=== PATIENT | male | born 1985 | race Caucasian/White ===

== ENCOUNTER 2018-06-19 18:25 | Emergency (ER) | payer BC ==
[2018-06-19] MEDS ORDERED: Metoclopramide 10 MG/2 ML SDV IVPUSH ONE (18:37)
[2018-06-19] MEDS ORDERED: Sodium Chloride 0.9% 2.5 ML Syringe FLUSH PRN (18:40)
[2018-06-19] MEDS ORDERED: Sodium Chloride 0.9% 10 ML Syringe FLUSH PRN (18:40)
[2018-06-19] MEDS ORDERED: Sodium Chloride 0.9% 1,000 ML IV ONE (18:40)
--- NOTE | 2018-06-19 18:40 | EDM.PDOC ---
<Mira Alcaraz - Last Filed: 06/19/18 21:29> ED HPI GENERAL MEDICAL PROBLEM - General Stated Complaint: DIARRHEA Time Seen by Provider: 06/19/18 18:27 - History of Present Illness INITIAL COMMENTS - FREE TEXT/NARRATIVE: This is Dr. Alcaraz dictating an addendum note as I have assumed care of this case at 7 PM. All labs have been reviewed and I have added a lactate level as well. CT scan has been reviewed as well. I discussed all testing results with the patient and he is aware that his spleen is mildly enlarged and he has some reactive lymph nodes as well as a small area in his liver that needs outpatient follow-up. He understands that the bulk of the issue today is more of a colitis picture and I will place him on antibiotics as well as give him Bentyl for home and recommend follow-up with one of our providers for resolution of the symptoms. I've also advised him to increase fiber in his diet push hydration and eat bland foods over the next couple of days. He states understanding. He has been stable here and afebrile and has only made a very small amount of stool which was sent to the lab. Patient is aware that the stool for Hemoccult is positive and that colitis can trigger bleeding in the stool. I have given him information to connect with our surgery clinic for colonoscopy after he is done with the therapy. At time of discharge the patient's stool culture for the quick look for Campylobacter is not back yet. We will contact him with those results and I will continue to follow those. He is aware that the remainder the culture is pending and he will be contacted with those results if there is a change in care plan. Please add to therapeutics above Flagyl and Precious Impression: Colitis with diarrhea - Related Data Allergies Allergy/AdvReac Type Severity Reaction Status Date / Time No Known Allergies Allergy Verified 06/19/18 18:39 Home Meds: Home Meds . [No Known Home Meds] 06/19/18 [History] ED ROS GENERAL - Review of Systems Review Of Systems: ROS reveals no pertinent complaints other than HPI. Course - Vital Signs Last Recorded V/S: Last Vital Signs Temp 98.0 F 06/19/18 20:44 Pulse 82 06/19/18 20:44 Resp 18 06/19/18 20:44 BP 122/68 06/19/18 20:44 Pulse Ox 95 03/13/19 20:44 - Orders/Labs/Meds Orders: Active Orders 24 hr Category Date Time Status CULTURE STOOL + CAMPY+SHIGATOX [RM] Stat Lab 06/19/18 20:38 Results Saline Lock Insert [OM.PC] Stat Oth 06/19/18 18:40 Ordered Labs: Laboratory Tests 06/19/18 06/19/18 06/19/18 Range/Units 18:42 19:01 19:01 WBC 7.18 (4.0-11.0) K/uL RBC 5.51 (4.50-5.90) M/uL Hgb 15.5 (13.0-17.0) g/dL Hct 45.6 (38.0-50.0) % MCV 82.8 (80.0-98.0) fL MCH 28.1 (27.0-32.0) pg MCHC 34.0 (31.0-37.0) g/dL RDW Std Deviation 40.1 (28.0-62.0) fl RDW Coeff of Bernardo 13 (11.0-15.0) % Plt Count 148 L (150-400) K/uL MPV 10.30 (7.40-12.00) fL Neut % (Auto) 69.9 (48.0-80.0) % Lymph % (Auto) 13.4 L (16.0-40.0) % Mora % (Auto) 14.2 (0.0-15.0) % Eos % (Auto) 2.4 (0.0-7.0) % Baso % (Auto) 0.1 (0.0-1.5) % Neut # (Auto) 5.0 (1.4-5.7) K/uL Lymph # (Auto) 1.0 (0.6-2.4) K/uL Mora # (Auto) 1.0 H (0.0-0.8) K/uL Eos # (Auto) 0.2 (0.0-0.7) K/uL Baso # (Auto) 0.0 (0.0-0.1) K/uL Nucleated RBC % 0.0 /100WBC Nucleated RBCs # 0 K/uL Lactate (0.20-2.00) mmol/L Sodium 138 (136-148) mmol/L Potassium 3.9 (3.5-5.1) mmol/L Chloride 100 (98-107) mmol/L Carbon Dioxide 29.8 (21.0-32.0) mmol/L BUN 9 (7.0-18.0) mg/dL Creatinine 0.9 (0.8-1.3) mg/dL Est Cr Clr Drug Dosing 123.92 mL/min Estimated GFR (MDRD) > 60.0 ml/min Glucose 113 H (74-106) mg/dL Calcium 9.0 (8.5-10.1) mg/dL Total Bilirubin 0.9 (0.2-1.0) mg/dL AST 11 L (15-37) IU/L ALT 22 (14-63) IU/L Alkaline Phosphatase 98 (46-116) U/L Total Protein 7.3 (6.4-8.2) g/dL Albumin 3.6 (3.4-5.0) g/dL Globulin 3.7 (2.6-4.0) g/dL Albumin/Globulin Ratio 1.0 (0.9-1.6) Lipase 200 (73-393) U/L Urine Color YELLOW Urine Appearance CLEAR Urine pH 5.5 (5.0-8.0) Ur Specific Glenn 1.025 (1.001-1.035) Urine Protein 30 H (NEGATIVE) mg/dL Urine Glucose (UA) NEGATIVE (NEGATIVE) mg/dL Urine Ketones 15 H (NEGATIVE) mg/dL Urine Occult Blood NEGATIVE (NEGATIVE) Urine Nitrite NEGATIVE (NEGATIVE) Urine Bilirubin MODERATE H (NEGATIVE) Urine Ictotest NEGATIVE Urine Urobilinogen 0.2 (<2.0) EU/dL Ur Leukocyte Esterase NEGATIVE (NEGATIVE) Urine RBC 0-2 (0-2/HPF) Urine WBC 0-2 (0-5/HPF) Ur Epithelial Cells RARE (NONE-FEW) Urine Bacteria FEW (NEGATIVE) Urine Mucus MANY (NONE-MOD) H. pylori IgG Antibody (NEG) 06/19/18 06/19/18 Range/Units 19:01 19:16 WBC (4.0-11.0) K/uL RBC (4.50-5.90) M/uL Hgb (13.0-17.0) g/dL Hct (38.0-50.0) % MCV (80.0-98.0) fL MCH (27.0-32.0) pg MCHC (31.0-37.0) g/dL RDW Std Deviation (28.0-62.0) fl RDW Coeff of Bernardo (11.0-15.0) % Plt Count (150-400) K/uL MPV (7.40-12.00) fL Neut % (Auto) (48.0-80.0) % Lymph % (Auto) (16.0-40.0) % Mora % (Auto) (0.0-15.0) % Eos % (Auto) (0.0-7.0) % Baso % (Auto) (0.0-1.5) % Neut # (Auto) (1.4-5.7) K/uL Lymph # (Auto) (0.6-2.4) K/uL Mora # (Auto) (0.0-0.8) K/uL Eos # (Auto) (0.0-0.7) K/uL Baso # (Auto) (0.0-0.1) K/uL Nucleated RBC % /100WBC Nucleated RBCs # K/uL Lactate 1.0 (0.20-2.00) mmol/L Sodium (136-148) mmol/L Potassium (3.5-5.1) mmol/L Chloride (98-107) mmol/L Carbon Dioxide (21.0-32.0) mmol/L BUN (7.0-18.0) mg/dL Creatinine (0.8-1.3) mg/dL Est Cr Clr Drug Dosing mL/min Estimated GFR (MDRD) ml/min Glucose (74-106) mg/dL Calcium (8.5-10.1) mg/dL Total Bilirubin (0.2-1.0) mg/dL AST (15-37) IU/L ALT (14-63) IU/L Alkaline Phosphatase (46-116) U/L Total Protein (6.4-8.2) g/dL Albumin (3.4-5.0) g/dL Globulin (2.6-4.0) g/dL Albumin/Globulin Ratio (0.9-1.6) Lipase (73-393) U/L Urine Color Urine Appearance Urine pH (5.0-8.0) Ur Specific Glenn (1.001-1.035) Urine Protein (NEGATIVE) mg/dL Urine Glucose (UA) (NEGATIVE) mg/dL Urine Ketones (NEGATIVE) mg/dL Urine Occult Blood (NEGATIVE) Urine Nitrite (NEGATIVE) Urine Bilirubin (NEGATIVE) Urine Ictotest Urine Urobilinogen (<2.0) EU/dL Ur Leukocyte Esterase (NEGATIVE) Urine RBC (0-2/HPF) Urine WBC (0-5/HPF) Ur Epithelial Cells (NONE-FEW) Urine Bacteria (NEGATIVE) Urine Mucus (NONE-MOD) H. pylori IgG Antibody NEGATIVE (NEG) Meds: Medications Discontinued Medications Generic Name Dose Route Start Last Admin Trade Name Freq PRN Reason Stop Dose Admin Ciprofloxacin 500 mg 06/19/18 20:51 06/19/18 20:59 Ciprofloxacin Hcl PO 06/19/18 20:52 500 mg ONETIME ONE Administration Dicyclomine HCl 20 mg 06/19/18 20:51 06/19/18 20:59 Bentyl PO 06/19/18 20:52 20 mg ONETIME ONE Administration Sodium Chloride 1,000 mls @ 999 mls/hr 06/19/18 18:40 06/19/18 18:50 Normal Saline IV 06/19/18 19:40 999 mls/hr .Bolus ONE Administration Metronidazole 500 mg/ Premix 100 mls @ 100 mls/hr 06/19/18 20:51 06/19/18 20: 57 IV 06/19/18 21:50 100 mls/hr ONETIME ONE Administration Iopamidol 100 ml 06/19/18 19:45 06/19/18 19:46 Isovue Multipack-370 (76%) IVPUSH 06/19/18 19:46 100 ml ONETIME STA Administration Morphine Sulfate 4 mg 06/19/18 18:52 06/19/18 19:11 Morphine IVPUSH 06/19/18 18:53 4 mg ONETIME ONE Administration Ondansetron HCl 4 mg 06/19/18 18:52 06/19/18 19:09 Zofran IVPUSH 06/19/18 18:53 4 mg ONETIME ONE Administration Sodium Chloride 10 ml 06/19/18 18:40 06/19/18 19:11 Saline Flush FLUSH 10 ml ASDIRECTED PRN Administration Keep Vein Open Sodium Chloride 2.5 ml 06/19/18 18:40 06/19/18 19:11 Saline Flush FLUSH 2.5 ml ASDIRECTED PRN Administration Keep Vein Open Departure - Departure Time of Disposition: 21:30 Disposition: Home, Self-Care 01 Condition: Good Clinical Impression: Colitis Diarrhea Qualifiers: Diarrhea type: unspecified type Qualified Code(s): R19.7 - Diarrhea, unspecified - Discharge Information Instructions: Colitis, Diarrhea, Adult, [id number] Referrals: PCP,None [Primary Care Provider] - Forms: ED Department Discharge Additional Instructions: The following information is given to patients seen in the emergency department who are being discharged to home. This information is to outline your options for follow-up care. We provide all patients seen in our emergency department with a follow-up referral. The need for follow-up, as well as the timing and circumstances, are variable depending upon the specifics of your emergency department visit. If you don't have a primary care physician on staff, we will provide you with a referral. We always advise you to contact your personal physician following an emergency department visit to inform them of the circumstance of the visit and for follow-up with them and/or the need for any referrals to a consulting specialist. The emergency department will also refer you to a specialist when appropriate. This referral assures that you have the opportunity for followup care with a specialist. All of these measure are taken in an effort to provide you with optimal care, which includes your followup. Under all circumstances we always encourage you to contact your private physician who remains a resource for coordinating your care. When calling for followup care, please make the office aware that this follow-up is from your recent emergency room visit. If for any reason you are refused follow-up, please contact the [facility] emergency department at and ask to speak to the emergency department charge nurse. [facility] Primary care- Internal Medicine and Family [facility] [address] [place] [id number] [facility] Specialty Care-General Surgery Professional Building [address] [place] [id number] Please use all medications as prescribed. You have been given antibiotics which you need to take until they're finished and you have also been given Bentyl/ dicyclomine for the cramping. Please push hydration such as water Gatorade and juices as well as eating a bland diet. In the future try to increase fiber in your diet. Please call and schedule a follow-up appointment for reevaluation and further care of this problem and for complete resolution. You will also need to contact our surgery department to schedule an outpatient colonoscopy once you're done with the treatment plan started today and the antibiotics. Return to ER as needed and as discussed - My Orders Last 24 Hours: My Active Orders 06/19/18 18:40 Saline Lock Insert [OM.PC] Stat 06/19/18 20:38 CULTURE STOOL + CAMPY+SHIGATOX [RM] Stat - Assessment/Plan Last 24 Hours: My Active Orders 06/19/18 18:40 Saline Lock Insert [OM.PC] Stat 06/19/18 20:38 CULTURE STOOL + CAMPY+SHIGATOX [RM] Stat <Jennifer Fuller - Last Filed: 06/20/18 11:24> ED HPI GENERAL MEDICAL PROBLEM - General Source of Information: Reports: Patient History Limitations: Reports: No Limitations - History of Present Illness INITIAL COMMENTS - FREE TEXT/NARRATIVE: History of present illness: []Patient has had 3 days of right sided abdominal pain with fevers to 102.5 at night and sweats in the morning. He's been having diarrhea that began today with about 2 episodes every hour. He drank a red colored energy drink and can see it in his stools. States he feels weak and dehydrated. Patient has not had previous abdominal surgery in the past. Review of systems: As per history of present illness and below otherwise all systems reviewed and negative. Past medical history: As per history of present illness and as reviewed below otherwise noncontributory. Surgical history: As per history of present illness and as reviewed below otherwise noncontributory. Social history: No reported history of drug or alcohol abuse. Family history: As per history of present illness and as reviewed below otherwise noncontributory. Physical exam: General: Well developed, well nourished in NAD HEENT: Atraumatic, normocephalic, pupils reactive, negative for conjunctival pallor or scleral icterus, mucous membranes moist, throat clear, neck supple, nontender, trachea midline. Lungs: Clear to auscultation, breath sounds equal bilaterally, chest nontender. Heart: S1S2, regular, negative for clicks, rubs, or JVD. Abdomen: NABS, Soft, nondistended, tender in the right upper and bilateral lower quadrants no rebound or guarding. Negative for masses or hepatosplenomegaly. Negative for costovertebral tenderness. Pelvis: Stable nontender. Genitourinary: Deferred. Rectal: Deferred. Extremities: Atraumatic, negative for cords or calf pain. Neurovascular unremarkable. Neuro: Awake, alert, oriented. Cranial nerves II through XII unremarkable. Cerebellum unremarkable. Motor and sensory unremarkable throughout. Exam nonfocal. Skin:warm and dry Diagnostics: CBC, chemistry, lipase, H. pylori, stool culture Therapeutics: Normal saline, Zofran and morphine for pain ED Course: Patient is being signed out to Dr. Alcaraz to check labs, order any imaging if needed and disposition the patient. Impression: Prescriptions: Plan: Definitive disposition and diagnosis as appropriate pending reevaluation and review of above. Abdomen Pain Score (Numeric/FACES): 8 ED ROS GENERAL - Review of Systems Review Of Systems: ROS reveals no pertinent complaints other than HPI. ED EXAM, GI/ABD - Physical Exam Exam: See Below (See history of present illness) Course - Vital Signs Last Recorded V/S: Last Vital Signs Temp 98.0 F 06/19/18 20:44 Pulse 82 06/19/18 20:44 Resp 18 06/19/18 20:44 BP 122/68 06/19/18 20:44 Pulse Ox 95 06/19/18 20:44 - Orders/Labs/Meds Orders: Active Orders 24 hr Category Date Time Status CULTURE STOOL + CAMPY+SHIGATOX [RM] Stat Lab 06/19/18 20:38 Results Saline Lock Insert [OM.PC] Stat Oth 06/19/18 18:40 Ordered Labs: Laboratory Tests 06/19/18 06/19/18 06/19/18 Range/Units 18:42 19:01 19:01 WBC 7.18 (4.0-11.0) K/uL RBC 5.51 (4.50-5.90) M/uL Hgb 15.5 (13.0-17.0) g/dL Hct 45.6 (38.0-50.0) % MCV 82.8 (80.0-98.0) fL MCH 28.1 (27.0-32.0) pg MCHC 34.0 (31.0-37.0) g/dL RDW Std Deviation 40.1 (28.0-62.0) fl RDW Coeff of Bernardo 13 (11.0-15.0) % Plt Count 148 L (150-400) K/uL MPV 10.30 (7.40-12.00) fL Neut % (Auto) 69.9 (48.0-80.0) % Lymph % (Auto) 13.4 L (16.0-40.0) % Mora % (Auto) 14.2 (0.0-15.0) % Eos % (Auto) 2.4 (0.0-7.0) % Baso % (Auto) 0.1 (0.0-1.5) % Neut # (Auto) 5.0 (1.4-5.7) K/uL Lymph # (Auto) 1.0 (0.6-2.4) K/uL Mora # (Auto) 1.0 H (0.0-0.8) K/uL Eos # (Auto) 0.2 (0.0-0.7) K/uL Baso # (Auto) 0.0 (0.0-0.1) K/uL Nucleated RBC % 0.0 /100WBC Nucleated RBCs # 0 K/uL Lactate (0.20-2.00) mmol/L Sodium 138 (136-148) mmol/L Potassium 3.9 (3.5-5.1) mmol/L Chloride 100 (98-107) mmol/L Carbon Dioxide 29.8 (21.0-32.0) mmol/L BUN 9 (7.0-18.0) mg/dL Creatinine 0.9 (0.8-1.3) mg/dL Est Cr Clr Drug Dosing 123.92 mL/min Estimated GFR (MDRD) > 60.0 ml/min Glucose 113 H (74-106) mg/dL Calcium 9.0 (8.5-10.1) mg/dL Total Bilirubin 0.9 (0.2-1.0) mg/dL AST 11 L (15-37) IU/L ALT 22 (14-63) IU/L Alkaline Phosphatase 98 (46-116) U/L Total Protein 7.3 (6.4-8.2) g/dL Albumin 3.6 (3.4-5.0) g/dL Globulin 3.7 (2.6-4.0) g/dL Albumin/Globulin Ratio 1.0 (0.9-1.6) Lipase 200 (73-393) U/L Urine Color YELLOW Urine Appearance CLEAR Urine pH 5.5 (5.0-8.0) Ur Specific Glenn 1.025 (1.001-1.035) Urine Protein 30 H (NEGATIVE) mg/dL Urine Glucose (UA) NEGATIVE (NEGATIVE) mg/dL Urine Ketones 15 H (NEGATIVE) mg/dL Urine Occult Blood NEGATIVE (NEGATIVE) Urine Nitrite NEGATIVE (NEGATIVE) Urine Bilirubin MODERATE H (NEGATIVE) Urine Ictotest NEGATIVE Urine Urobilinogen 0.2 (<2.0) EU/dL Ur Leukocyte Esterase NEGATIVE (NEGATIVE) Urine RBC 0-2 (0-2/HPF) Urine WBC 0-2 (0-5/HPF) Ur Epithelial Cells RARE (NONE-FEW) Urine Bacteria FEW (NEGATIVE) Urine Mucus MANY (NONE-MOD) H. pylori IgG Antibody (NEG) 06/19/18 06/19/18 Range/Units 19:01 19:16 WBC (4.0-11.0) K/uL RBC (4.50-5.90) M/uL Hgb (13.0-17.0) g/dL Hct (38.0-50.0) % MCV (80.0-98.0) fL MCH (27.0-32.0) pg MCHC (31.0-37.0) g/dL RDW Std Deviation (28.0-62.0) fl RDW Coeff of Bernardo (11.0-15.0) % Plt Count (150-400) K/uL MPV (7.40-12.00) fL Neut % (Auto) (48.0-80.0) % Lymph % (Auto) (16.0-40.0) % Mora % (Auto) (0.0-15.0) % Eos % (Auto) (0.0-7.0) % Baso % (Auto) (0.0-1.5) % Neut # (Auto) (1.4-5.7) K/uL Lymph # (Auto) (0.6-2.4) K/uL Mora # (Auto) (0.0-0.8) K/uL Eos # (Auto) (0.0-0.7) K/uL Baso # (Auto) (0.0-0.1) K/uL Nucleated RBC % /100WBC Nucleated RBCs # K/uL Lactate 1.0 (0.20-2.00) mmol/L Sodium (136-148) mmol/L Potassium (3.5-5.1) mmol/L Chloride (98-107) mmol/L Carbon Dioxide (21.0-32.0) mmol/L BUN (7.0-18.0) mg/dL Creatinine (0.8-1.3) mg/dL Est Cr Clr Drug Dosing mL/min Estimated GFR (MDRD) ml/min Glucose (74-106) mg/dL Calcium (8.5-10.1) mg/dL Total Bilirubin (0.2-1.0) mg/dL AST (15-37) IU/L ALT (14-63) IU/L Alkaline Phosphatase (46-116) U/L Total Protein (6.4-8.2) g/dL Albumin (3.4-5.0) g/dL Globulin (2.6-4.0) g/dL Albumin/Globulin Ratio (0.9-1.6) Lipase (73-393) U/L Urine Color Urine Appearance Urine pH (5.0-8.0) Ur Specific Glenn (1.001-1.035) Urine Protein (NEGATIVE) mg/dL Urine Glucose (UA) (NEGATIVE) mg/dL Urine Ketones (NEGATIVE) mg/dL Urine Occult Blood (NEGATIVE) Urine Nitrite (NEGATIVE) Urine Bilirubin (NEGATIVE) Urine Ictotest Urine Urobilinogen (<2.0) EU/dL Ur Leukocyte Esterase (NEGATIVE) Urine RBC (0-2/HPF) Urine WBC (0-5/HPF) Ur Epithelial Cells (NONE-FEW) Urine Bacteria (NEGATIVE) Urine Mucus (NONE-MOD) H. pylori IgG Antibody NEGATIVE (NEG) Meds: Medications Discontinued Medications Generic Name Dose Route Start Last Admin Trade Name Freq PRN Reason Stop Dose Admin Ciprofloxacin 500 mg 06/19/18 20:51 06/19/18 20:59 Ciprofloxacin Hcl PO 06/19/18 20:52 500 mg ONETIME ONE Administration Dicyclomine HCl 20 mg 06/19/18 20:51 06/19/18 20:59 Bentyl PO 06/19/18 20:52 20 mg ONETIME ONE Administration Sodium Chloride 1,000 mls @ 999 mls/hr 06/19/18 18:40 06/19/18 18:50 Normal Saline IV 06/19/18 19:40 999 mls/hr .Bolus ONE Administration Metronidazole 500 mg/ Premix 100 mls @ 100 mls/hr 06/19/18 20:51 06/19/18 20: 57 IV 06/19/18 21:50 100 mls/hr ONETIME ONE Administration Iopamidol 100 ml 06/19/18 19:45 06/19/18 19:46 Isovue Multipack-370 (76%) IVPUSH 06/19/18 19:46 100 ml ONETIME STA Administration Morphine Sulfate 4 mg 06/19/18 18:52 06/19/18 19:11 Morphine IVPUSH 06/19/18 18:53 4 mg ONETIME ONE Administration Ondansetron HCl 4 mg 06/19/18 18:52 06/19/18 19:09 Zofran IVPUSH 06/19/18 18:53 4 mg ONETIME ONE Administration Sodium Chloride 10 ml 06/19/18 18:40 06/19/18 19:11 Saline Flush FLUSH 10 ml ASDIRECTED PRN Administration Keep Vein Open Sodium Chloride 2.5 ml 06/19/18 18:40 06/19/18 19:11 Saline Flush FLUSH 2.5 ml ASDIRECTED PRN Administration Keep Vein Open - My Orders Last 24 Hours: My Active Orders 06/19/18 18:40 Saline Lock Insert [OM.PC] Stat 06/19/18 20:38 CULTURE STOOL + CAMPY+SHIGATOX [] Stat - Assessment/Plan Last 24 Hours: My Active Orders 06/19/18 18:40 Saline Lock Insert [OM.PC] Stat 06/19/18 20:38 CULTURE STOOL + CAMPY+SHIGATOX [RM] Stat
[2018-06-19] MEDS ORDERED: Ondansetron 4 MG/2 ML SDV IVPUSH ONE (18:52)
[2018-06-19] MEDS ORDERED: Morphine 4 MG/ML Syringe IVPUSH ONE (18:52)
[2018-06-19 19:26] LABS: CHLORIDE,CL 100 mmol/L (98-107); SODIUM,NA 138 mmol/L (136-148)
[2018-06-19] MEDS ORDERED: Iopamidol 755 MG/ML 500 ML Multipack Bottle IVPUSH STA (19:45)
--- NOTE | 2018-06-19 20:42 | CT ---
INDICATION: pain CT ABDOMEN AND PELVIS WITH CONTRAST TECHNIQUE: Multidetector CT imaging was performed through the abdomen and pelvis following intravenous contrast administration using 100 mL Isovue 370. Coronal and sagittal reconstructions were generated. COMPARISON: None. FINDINGS: Lower chest: Lung bases are clear. Liver: Unremarkable aside from an indeterminate 1.6 centimeter rounded hypodensity in the central liver just superior to the emy hepatis on image 39 of series 201. Gallbladder and bile ducts: No gallbladder wall thickening or calcified gallstones. No biliary dilation identified. Pancreas: Unremarkable. Spleen: Mild splenomegaly measuring 17 centimeters. Adrenals: No nodules or masses. Kidneys, ureters, and urinary bladder: No renal masses or hydronephrosis. No bladder mass or definite wall thickening. Gastrointestinal tract: Normal caliber small bowel without wall thickening or obstruction. The appendix is normal. Mild colon wall thickening involving the cecum, descending colon, sigmoid, and probably the transverse colon, with mild pericolonic fat stranding. Vascular structures: Normal for age. Peritoneum: Trace amount of free fluid in the lower pelvis. No free air or evidence of intra-abdominal abscess. Lymph nodes: Multiple borderline enlarged mesenteric lymph nodes, most prominent in the right lower quadrant adjacent to the cecum. Reproductive organs: No pelvic masses. Bones: Normal for age. IMPRESSION: 1. Mild colon wall thickening as detailed above, with associated pericolonic fat stranding and minimal free fluid. In a patient of this age, infectious colitis and Crohn`s disease would be the most likely considerations. 2. Several borderline enlarged mesenteric lymph nodes, likely reactive. 3. Indeterminate 1.6 centimeter hypodensity within the central liver. Consider followup focused hepatic ultrasound. KUSHAL FOSTER MD [employer] [facility] Dictated by Kuldeep Foster MD @ 06/19/2018 8:39:16 PM Dictated by: Kuldeep Foster MD @ 06/19/2018 20:40:19 (Electronically Signed)
[2018-06-19] MEDS ORDERED: Dicyclomine 10 MG Cap PO ONE (20:51)
[2018-06-19] MEDS ORDERED: Ciprofloxacin 500 MG Tab PO ONE (20:51)
[2018-06-19] MEDS ORDERED: metroNIDAZOLE/Normal Saline 500 MG in Premix Bag 1 BAG IV ONE (20:51)
== END 2018-06-19 22:14 | disposition home or self-care (01) ==
LOC: MW.ED 18:25
DX: K52.9 Noninfective gastroenteritis and colitis, unspecified (principal)
CPT/HCPCS: 74177; 80053; 81001; 82272; 83605; 83690; 85025; 86677; 87046; 96361; 96365; 96375; 99284; A9270; J2270; J2405; J3490; J7040; Q9967; 99283

== ENCOUNTER 2018-12-23 11:24 | Emergency (ER) | payer BC ==
--- NOTE | 2018-12-23 11:50 | EDM.PDOC ---
ED HPI GENERAL MEDICAL PROBLEM - General Chief Complaint: Upper Extremity Injury/Pain Stated Complaint: SWOLLEN RIGHT HAND Time Seen by Provider: 12/23/18 11:38 Source of Information: Reports: Patient History Limitations: Reports: No Limitations - History of Present Illness INITIAL COMMENTS - FREE TEXT/NARRATIVE: HISTORY AND PHYSICAL: History of present illness: Patient is a 33-year-old male presents to the ED today with concern of right hand injury that occurred on Sunday. Patient states he was carrying shingles at work which were approximately 100 pounds and he had them over his right shoulder. Patient states the shingles fell backwards and his hand slipped forward and the side of his right hand hit a piece of heavy equipment in the shop on Sunday. Patient states he had does have some pain over the area that hit the equipment but his main concern is the swelling and states that it is not as painful as he would expect. Patient states he has been using ibuprofen and icing it at home. Patient states he's recently had a tendon injury on his third digit of his right hand, which he is following with a hand specialist out [facility] and has an appointment on . Patient denies fever, chills, chest pain, shortness of breath, or cough. Denies headache, neck stiff ness, change in vision, syncope, or near syncope. Denies nausea, vomiting, abdominal pain, diarrhea, constipation, or dysuria. Has not noted any blood in urine or stool. Patient has been eating and drinking appropriately. Review of systems: As per history of present illness and below otherwise all systems reviewed and negative. Past medical history: As per history of present illness and as reviewed below otherwise noncontributory. Surgical history: As per history of present illness and as reviewed below otherwise noncontributory. Social history: See social history for further information Family history: As per history of present illness and as reviewed below otherwise noncontributory. Physical exam: General: Patient is alert, oriented, and in no acute distress. Patient sitting comfortably on exam table. HEENT: Atraumatic, normocephalic, pupils equal and reactive bilaterally, negative for conjunctival pallor or scleral icterus, mucous membranes moist, TMs normal bilaterally, throat clear, neck supple, nontender, trachea midline. No drooling or trismus noted. No meningeal signs. No hot potato voice noted. Lungs: Clear to auscultation, breath sounds equal bilaterally, chest nontender. Heart: S1S2, regular rate and rhythm without overt murmur Abdomen: Soft, nondistended, nontender. Negative for masses or hepatosplenomegaly. Negative for costovertebral tenderness. Pelvis: Stable nontender. Genitourinary: Deferred. Rectal: Deferred. Skin: Intact, warm, dry. No lesions or rashes noted. Extremities: Negative for cords or calf pain. Neurovascular unremarkable. Patient has full range of motion of all digits except for the third digit in which he has limited flexion of the finger at baseline. The right hand is edematous and there is bruising along the base of the pinky finger with point tenderness to that area. Radial pulses grossly intact with capillary refill less than 2 seconds. Neuro: Awake, alert, oriented. Cranial nerves II through XII unremarkable. Cerebellum unremarkable. Motor and sensory unremarkable throughout. Exam nonfocal. Notes: I did call and speak to Dr. Leary, hand specialist [facility] [place], who suggests follow up within 2-3 days. Discussed the importance for follow-up with hand specialist. Voices understanding and is agreeable to plan of care. Denies any further questions or concerns at this time. Diagnostics: hand XR Therapeutics: Ulnar gutter splint Prescription: (Patient declines pain medication) Impression: 5th metacarpal fracture, closed Plan: 1. Rest, ice, elevate the affected extremity, but keep splint intact until follow up with hand specialist. You can apply ice 15 minutes on, 15 minutes off. 2. Tylenol and/or Ibuprofen as directed for pain management or discomfort. 3. Follow up with the hand specialist provider as scheduled and as discussed. Return to the ED as needed and as discussed. Definitive disposition and diagnosis as appropriate pending reevaluation and review of above. Right Hand Pain Score (Numeric/FACES): 1 - Related Data Allergies Allergy/AdvReac Type Severity Reaction Status Date / Time No Known Allergies Allergy Verified 12/23/18 11:40 Home Meds: Home Meds . [No Known Home Meds] 06/19/18 [History] Past Medical History - Past Health History Medical/Surgical History: Denies Medical/Surgical History HEENT History: Reports: None Cardiovascular History: Reports: None Respiratory History: Reports: Asthma Gastrointestinal History: Reports: None Genitourinary History: Reports: None Musculoskeletal History: Reports: None Neurological History: Reports: None Psychiatric History: Reports: None Endocrine/Metabolic History: Reports: None Hematologic History: Reports: None Immunologic History: Reports: None Oncologic (Cancer) History: Reports: None Dermatologic History: Reports: None - Infectious Disease History Infectious Disease History: Reports: Chicken Pox - Past Surgical History Head Surgeries/Procedures: Reports: None HEENT Surgical History: Reports: None Cardiovascular Surgical History: Reports: None Respiratory Surgical History: Reports: None GI Surgical History: Reports: None Male Surgical History: Reports: None Endocrine Surgical History: Reports: None Neurological Surgical History: Reports: None Musculoskeletal Surgical History: Reports: None Oncologic Surgical History: Reports: None Dermatological Surgical History: Reports: None Social & Family History - Family History Family Medical History: Noncontributory - Tobacco Use Smoking Status *Q: Never Smoker - Caffeine Use Caffeine Use: Reports: Coffee, None Review of Systems - Review of Systems Review Of Systems: ROS reveals no pertinent complaints other than HPI. ED EXAM, GENERAL - Physical Exam Exam: See Below (see dictation) Course - Vital Signs Last Recorded V/S: Last Vital Signs Temp 36.5 C 12/23/18 11:40 Pulse 88 12/23/18 11:40 Resp 18 12/23/18 11:40 BP 127/54 L 12/23/18 11:40 Pulse Ox 98 12/23/18 11:40 - Orders/Labs/Meds Orders: Active Orders 24 hr Category Date Time Status DME for Discharge [COMM] Stat Oth 12/23/18 13:03 Ordered Departure - Departure Time of Disposition: 13:09 Disposition: Home, Self-Care 01 Clinical Impression: Closed fracture of 5th metacarpal Qualifiers: Encounter type: initial encounter Metacarpal location: neck Fracture alignment : nondisplaced Laterality: right Qualified Code(s): S62.366A - Nondisplaced fracture of neck of fifth metacarpal bone, right hand, initial encounter for closed fracture - Discharge Information Referrals: PCP,None [Primary Care Provider] - Forms: ED Department Discharge Additional Instructions: The following information is given to patients seen in the emergency department who are being discharged to home. This information is to outline your options for follow-up care. We provide all patients seen in our emergency department with a follow-up referral. The need for follow-up, as well as the timing and circumstances, are variable depending upon the specifics of your emergency department visit. If you don't have a primary care physician on staff, we will provide you with a referral. We always advise you to contact your personal physician following an emergency department visit to inform them of the circumstance of the visit and for follow-up with them and/or the need for any referrals to a consulting specialist. The emergency department will also refer you to a specialist when appropriate. This referral assures that you have the opportunity for follow-up care with a specialist. All of these measure are taken in an effort to provide you with optimal care, which includes your follow-up. Under all circumstances we always encourage you to contact your private physician who remains a resource for coordinating your care. When calling for follow-up care, please make the office aware that this follow-up is from your recent emergency room visit. If for any reason you are refused follow-up, please contact the [facility] Emergency [facility] at and asked to speak to the emergency department charge nurse. [facility] [address] [place] [id number] [address] [facility], Hand and Wrist Surgery, Dr. Leary [address] [place] [id number] PH: [phone] 1. Rest, ice, elevate the affected extremity, but keep splint intact until follow up with hand specialist. You can apply ice 15 minutes on, 15 minutes off. 2. Tylenol and/or Ibuprofen as directed for pain management or discomfort. 3. Follow up with the hand specialist provider as scheduled and as discussed. Return to the ED as needed and as discussed. - My Orders Last 24 Hours: My Active Orders 12/23/18 13:03 DME for Discharge [COMM] Stat - Assessment/Plan Last 24 Hours: My Active Orders 12/23/18 13:03 DME for Discharge [COMM] Stat
--- NOTE | 2018-12-23 12:57 | CR ---
Indication: Injury Technique: Three views of the right hand Comparison: None available Findings: Bones: A fracture of the 5th metacarpal neck with mild angulation. A corticated unfused chronic fracture of the ulnar styloid. A metallic density in the 4th distal phalanx could be postsurgical. No dislocation. Joint spaces: Unremarkable. Soft tissues: Dorsal soft tissue swelling. Impression: A 5th metacarpal fracture. A presumably postsurgical metallic anchor in the 4th distal phalanx. Correlate with history. Dictated by Elvis Lopez MD @ 12/23/2018 12:56:39 PM Dictated by: Elvis Lopez MD @ 12/23/2018 12:56:46 (Electronically Signed)
== END 2018-12-23 13:30 | disposition home or self-care (01) ==
LOC: MW.ED 11:24
DX: S62.366A Nondisplaced fracture of neck of fifth metacarpal bone, right hand, initial encounter for closed fracture (principal); W01.0XXA Fall on same level from slipping, tripping and stumbling without subsequent striking against object, initial encounter; Y99.0 Civilian activity done for income or pay
CPT/HCPCS: 73130-26-RT; 73130-RT; 99283-25